=== PATIENT | male | born 1940 | race Caucasian/White ===

== ENCOUNTER 2018-06-28 01:24 | Outpatient (CLI) | payer MEDICARE, BC, SELFPAY ==
--- NOTE | 2018-06-28 11:27 | DI.MRI_ITS ---
SYMPTOMS/DIAGNOSIS: PARKINSON DISEASE, G20, NEW ONSET TREMORS MRI OF THE BRAIN: There are no prior comparison exams. T2 sagittal, T1, T2, FLAIR, diffusion and gradient-echo axial sequences were performed. There is mild atrophy. No acute infarct, hemorrhage or mass is seen. The ventricles are normal in size. There are minimal white matter changes consistent with microvascular disease. The vascular flow voids appear intact. The sinuses show mild mucosal thickening. The orbits are unremarkable. IMPRESSION: Mild atrophy and small vessel disease. No acute abnormality.
== END 2018-06-28 01:44 ==
PROVIDERS: PCP Family Medicine; Visit Provider Family Medicine
DX: G20 Parkinson's disease (principal); G25.2 Other specified forms of tremor
CPT/HCPCS: 70551

== ENCOUNTER 2020-04-19 01:13 | Outpatient (CLI) | payer MEDICARE, BC, SELFPAY ==
[2020-04-20 17:36] LABS: COVID-19 RT-PCR Result NEGATIVE (Negative)
== END 2020-04-19 01:33 ==
PROVIDERS: PCP Family Medicine; Visit Provider Nurse Practitioner Family
DX: Z11.59 Encounter for screening for other viral diseases (principal)
CPT/HCPCS: U0003